=== PATIENT | female | born 1965 | race Two or more races ===

== ENCOUNTER 2022-05-20 15:46 | Emergency (ER) | payer OTHER ==
[~2022-05-20] VITALS: Ht 162.6 cm; Wt 86.2 kg
[2022-05-20] MEDS ORDERED: ZESTRIL5 MG (15:54)
[2022-05-20] MEDS ORDERED: TAMS0.4C PO (23:05)
[2022-05-20] MEDS ORDERED: ORPHENADRINE C100 MG PO (23:06)
== END 2022-05-20 23:24 | disposition home or self-care (01) ==
LOC: ER 15:46
DX: N23 Unspecified renal colic (principal); M54.50 Low back pain, unspecified; Z88.6 Allergy status to analgesic agent; K76.0 Fatty (change of) liver, not elsewhere classified